=== PATIENT | female | born 1980 | race African-American/Black ===

== ENCOUNTER 2018-07-28 16:56 | Emergency (ER) | payer OTHER ==
[~2018-07-28] VITALS: Ht 177.8 cm; Wt 68.0 kg
[2018-07-28] MEDS ORDERED: KETOROLAC TROMETHAMINE INJ 30 MG/ML VIAL IV ONE (17:00)
[2018-07-28] MEDS ORDERED: IV NS 0.9% 1,000 ML BAG IV ONE (17:00)
[2018-07-28 17:15] LABS: BASOPHILS % (AUTO) 0.3 % (0.0-2.0); EOSINOPHILS % (AUTO) 0.6 % (0.0-6.0); HEMATOCRIT 41 % (33-45); HEMOGLOBIN 13.3 g/dL (11.5-14.8); LYMPHOCYTES # (AUTO) 2.9 /CMM (0.8-4.8); LYMPHOCYTES % (AUTO) 29.5 % (20.0-44.0); MEAN CORPUSCULAR HEMOGLOBIN 26 PG (26.0-33.0); MEAN CORPUSCULAR HGB CONC 33 g/dl (31.0-36.0); MEAN CORPUSCULAR VOLUME 79 fL (82-100); MONOCYTES # (AUTO) 0.6 /CMM (0.1-1.30); MONOCYTES % (AUTO) 5.8 % (2.0-12.0); NEUTROPHILS # (AUTO) 6.2 /CMM (1.8-8.9); NEUTROPHILS % (AUTO) 63.8 % (43.0-81.0); PLATELET COUNT (AUTO) 367 /CMM (150-450); RDW COEFFICIENT OF VARIATION 17.6 (11.5-15.0); RED BLOOD CELL COUNT(AUTO) 5.14 MIL/uL (4.0-5.2); WHITE BLOOD COUNT (AUTO) 9.8 K/uL (4.3-11.0)
--- NOTE | 2018-07-28 17:20 | NUR ---
BIB [facility] FOR OTB C/O PALPITATIONS S/P ARREST, NAD NOTED, VSS, RESP EVEN AND UNLABORED, PT WAS PUT ON MONITOR, WAITING FOR MD CALI.
[2018-07-28 17:22] LABS: CALCIUM, SERUM 9.2 mg/dL (8.5-10.1); CARBON DIOXIDE 24 mmol/L (21-32); CHLORIDE 102 mmol/L (98-107); CREATININE 1.1 mg/dL (0.6-1.3); GLUCOSE 144 mg/dL (74-106); POTASSIUM 3.5 mmol/L (3.5-5.1); SODIUM SERUM 134 mmol/L (136-145); UREA NITROGEN, BLOOD 8 mg/dL (7-18)
[2018-07-28 17:32] LABS: TROPONIN I < 0.017 ng/mL (0.00-0.056)
--- NOTE | 2018-07-28 18:24 | NUR ---
NO URINE SAMPLE AT THIS TIME
[2018-07-28] MEDS ORDERED: KETOROLAC TROMETHAMINE 15 MG/ML VIAL ONE (18:45)
[2018-07-28] MEDS ORDERED: QUETIAPINE FUMARATE 100 MG TABLET PO STA (20:03)
[2018-07-28] MEDS ORDERED: METFORMIN XR 500 MG TAB.SR.24H PO ONE (20:06)
[2018-07-28] MEDS ORDERED: QUETIAPINE FUMARATE 100 MG TABLET ONE (20:19)
--- NOTE | 2018-07-28 20:24 | NUR ---
Per jody Hewitt sup. pull the seroquel 200mg from [facility] - witnessed by araceli blair rn.
--- NOTE | 2018-07-28 20:26 | NUR ---
pt is [facility] custody. medically cleared by dr jeronimo.
[2018-07-28 20:27] VITALS: BP 130/90
[2018-07-28] MEDS ORDERED: METFORMIN 500 MG TABLET PO ONE (20:30)
== END 2018-07-28 20:28 ==
LOC: ER 16:57
DX: R00.2 Palpitations (principal); S60.211A Contusion of right wrist, initial encounter; F41.9 Anxiety disorder, unspecified; E11.9 Type 2 diabetes mellitus without complications; X58.XXXA Exposure to other specified factors, initial encounter; Y93.89 Activity, other specified; Y92.89 Other specified places as the place of occurrence of the external cause; Y99.8 Other external cause status
CPT/HCPCS: 36415; 71045; 71046; 73110; 80048; 84484; 84703; 85025; 93005; 96374; 99285; A4606; J1885; J7030; Z7610

== ENCOUNTER 2019-05-18 02:56 | Emergency (ER) | payer SELFPAY ==
[~2019-05-18] VITALS: Ht 165.1 cm; Wt 128.4 kg
[2019-05-18 02:58] VITALS: BP 148/73
--- NOTE | 2019-05-18 03:14 | NUR ---
CALLED IN [facility], NO ANSWER.
--- NOTE | 2019-05-18 03:46 | NUR ---
PATIENT NOT IN THE [facility].
--- NOTE | 2019-05-18 04:22 | NUR ---
PATIENT NOT IN THE [facility].
== END 2019-05-18 04:24 | disposition left against medical advice (07) ==
LOC: ER 02:58
DX: R42 Dizziness and giddiness (principal); I10 Essential (primary) hypertension; E11.9 Type 2 diabetes mellitus without complications; Z53.21 Procedure and treatment not carried out due to patient leaving prior to being seen by health care provider